=== PATIENT | female | born 2000 | race Caucasian/White ===

== ENCOUNTER 2021-04-17 05:28 | Inpatient (IN) | payer MEDICAID, SELFPAY ==
[2021-04-17 05:30] VITALS: BP 106/73; PULSE 63; RESP 16; TEMP 36.8; O2SAT 94
[2021-04-17 05:32] VITALS: BMI 20.3
[2021-04-17 06:00] VITALS: RESP 15
[2021-04-17] MEDS: acetaminophen 325 mg Tablet 650 MG PO ×2 (06:09→14:27)
--- NOTE | 2021-04-17 11:52 | P.HP_ITS ---
Providers/Chief Complaint Admitting Physician: Jack Barrientos MD Chief Complaint: si HPI NPU History of Present Illness Patricio Cheng is a 20 year old female with an extensive history of psychiatric issues and hospitalizations was transferred from the [place], [place] ED. I spoke with the ED physician who stated that the patient had been medically stabilized and cleared for transport. An affidavit from Jason Maldonado LPC, dated 04/16/2021, states: I saw this patient on this date in the [facility] ED for behavioral assessment. [facility] . She states that she has had suicidal ideation for some time now and that there have been over 20 attempts in the past, by overdose, cutting herself, and trying to strangle herself. She reports that there have been about 8 suicide attempts in the past 3 months. She states that tonight she took 800 mg of trazodone but denies that this was a suicide attempt, and says that she was just trying to sleep for a long time. Patient reports that she is having suicidal ideation with plan and intent and previous attempts. One of her plans was to overdose on trazodone. Patient reports that she is having symptoms of moderately severe depression, paranoid thoughts, and severe anxiety with social anxiety, panic attacks, and obsessive-compulsive features. She reports feelings of helplessness, hopelessness, worthlessness, and guilt. She also has a strong paranoid thoughts (her first comment was to ask this clinician if he was a mean person.) She denies hallucinations and recent manic symptoms. She reports past trauma but did not want to discuss it. Patient reports that her main stressor right now is that she does not have anything and that her sister left her at a park so she had to moved to [place] where she is now staying with a friend (she does not have a place of her own.) Patient reports that she is about to start up with a new psychiatrist/therapist through [facility], but has not been able to see anyone here yet for her mental health needs. Patient reports numerous psychiatric diagnoses and inpatient psychiatric hospital adm issions, most recently on 03/19/2021 in [place]. Patient has self harmed extensively including within the past 3 months, and her most severe suicide attempt required about 70 stitches and she was drunk with alcohol when she did that, but does not drink alcohol anymore. She said her suicidal thoughts started around age 11. She states she uses marijuana, but has not had any since she moved here about 17 days ago. Patient's only support system is 2 of her friends (one of them, who she is living with, had brought her to the hospital). Patient was calm and cooperative for the assessment, with no violent or aggressive behavior. Due to high risk of harm to self, patient does meet criteria for inpatient psychiatric hospital admission. Records from [facility] include: EKG on 04/16/2021 shows sinus bradycardia with sinus arrhythmia and is otherwise a normal EKG. Laboratory on 04/16/2021 shows normal UA, normal CBC, and negative test. CMP was significant for low potassium (3.3), and increased glucose (117). Ethanol, acetaminophen, and salicylate levels were all negative. Urine drug screen was negative for all substances tested. COVID-19 PCR was negative. The patient was admitted to the neuropsychiatric unit for definitive treatment of these issues and largely confirms the above information. She says that she has been in emotional pain, with feelings of helplessness, hopelessness, and worthlessness. She has anxiety and panic attacks, and used to restrict her food intake. She denies nightmares, auditory and visual hallucinations, as well as feelings of paranoia. She says that she has been diagnosed with bipolar disorder, PTSD, insomnia, and has had different diagnoses from different providers. Recently she has been taking trazodone 100 mg at bedtime and has taken Lamictal 25 mg for the past 2 weeks. This is her 30th hospitalization, or so, mostly for suicidal ideation. She is followed up for medication and therapy at [facility], and has her psychiatric appointment on the . She says it will take a couple of months to get into therapy. She denies using alcohol, says she regularly smokes marijuana, but stopped 18 days ago, and does not smoke cigarettes. The patient also says that she was in foster care a number of times growing up, from 6months to 3 years, then from 7 years to 10 years, then from 11 to 15 years, and then again starting at age 16. In between foster care placements she would live with 1 or her other parent. [place]. She says her sister dropped her at a park for 26 hours, and she called her former foster care acoustical installer. The engineering design supervisor picked her up and took her back to [place], [place] and found her temporary housing. She would like to live in some sort of transitional living placement. Psychiatric history: As above. Substance use history: As above. Family history: The patient says that everyone in my family has mental health issues, bipolar disorder, anxiety, etc. She says almost everyone has had substance use issues. She says her mother, sister, and brother have all attempted suicide. Psychosocial history: See above. The patient says she got her online high school graduation certificate. She says she has never worked. Legal history: No legal difficulties. Medical history: Denies any significant medical history, except for eczema, and exercise-induced asthma. Review of Systems General: Reports: 10 or more systems reviewed and unremarkable except in HPI and below Meds NPU Home Medications Medication Instructions Recorded Confirmed Last Taken Type albuterol 90 mcg INHALATION Q6H PRN 04/17/21 04/17/21 Unknown History aripiprazole 7.5 mg PO DAILY 04/17/21 04/17/21 Unknown History clindamycin phosphate 1 applic TOPICAL BID 04/17/21 04/17/21 Unknown History escitalopram oxalate 20 mg PO DAILY 04/17/21 04/17/21 Unknown History fluconazole 150 mg PO DAILY 04/17/21 04/17/21 Unknown History lamotrigine 75 mg PO DAILY 04/17/21 04/17/21 Unknown History minocycline [Minocin] 100 mg PO BID 04/17/21 04/17/21 Unknown History mirtazapine 15 mg PO BEDTIME 04/17/21 04/17/21 Unknown History naltrexone 50 mg PO DAILY 04/17/21 04/17/21 Unknown History polyethylene glycol 3350 17 g PO DAILY 04/17/21 04/17/21 Unknown History trazodone 50 mg PO BEDTIME 04/17/21 04/17/21 Unknown History Allergies Allergy/AdvReac Type Severity Reaction Status Date / Time amoxicillin Allergy ALGY-Rash Verified 04/17/21 05:50 Mental Status Exam MSE Comments: I met with the patient in her room and she would not sit up to talk to me, but rather continue to lay face down for most of the time, and was difficult to understand. There were some question she did not answer at all. No psychomotor agitation or retardation. Speech is at a regular rate and rhythm, quiets, not pressured. Alert, oriented to person, place, time, situation. Attention and concentration were intact. Able to spell the word WORLD correctly forwards and backwards. Memory is intact. Remembers 3/3 words immediately and 3/3 at 3 minutes. He knows the names of the past 3 presidents. Mood is depressed and agitated. Affect is mostly irritable. Thought process is logical and goal-directed. Thought content: Denies auditory and visual hallucinations. No delusions noted. She continues to feel suicidal, and feels like hurting herself. No homicidal ideation. Insight and judgment appear to be limited. Vitals/I&O/Wt Last Vital Signs Temp 98.3 F 04/17/21 05:30 Pulse 63 04/17/21 05:30 Resp 15 04/17/21 06:00 BP 106/73 04/17/21 05:30 Pulse Ox 94 04/17/21 05:30 Weight last 48 hrs Weight 52.163 kg Weight 52.163 kg A&P Assessment and plan (1) PTSD (post-traumatic stress disorder): Status: Acute (2) Bipolar disorder, unspecified: Status: Suspected (3) Disruptive mood dysregulation disorder: Status: Suspected (4) Insomnia: Status: Acute (5) Eating disorder in remission: Status: Acute (6) Cluster B personality disorder in adolescent: Status: Suspected Additional A&P Information Patricio Cheng is a 20 year old female with an extensive history of psychiatric issues and hospitalizations was transferred from the [place], [place] ED. She has a history of childhood trauma and disrupted relationships, spent years in foster care, and has symptoms consistent with cluster B personality organization, as well as disorganized attachment. 1. Continue current medication. 2. Continue every 15 minute checks for safety. 3. Encourage individual, group and milieu therapies. 4. Encourage sober living treatment after discharge at the highest level of care to which he is willing to commit. Involuntary Hold Information 96 Hour Hold: 96 Hour Involuntary Admission: No Attestations NPU Medical Necessity Statement*: Psychiatric hospitalization is medically necessary to prevent access to lethal means, to reevaluate medication, and to coordinate a safe discharge. Patient will be in the hospital for over 2 midnights. Likely length of stay is 3 to 5 days. Coding Level of Care Code Acute Food Adviser for g Fwd Diagnoses PTSD (post-traumatic stress disorder) F43.10 Bipolar disorder, unspecified F31.9 Disruptive mood dysregulation disorder F34.81 Insomnia G47.00 Eating disorder in remission F50.9 Cluster B personality disorder in adolescent F60.9
[2021-04-17 13:26] VITALS: BP 110/70; PULSE 70; RESP 15; TEMP 36.9; O2SAT 98
--- NOTE | 2021-04-17 14:34 | NPU.GN ---
[facility] Group Topic:Coping skills for stress General Mood of Group: Karen did not attend group, It was offered, resting in bed.
[2021-04-17] MEDS: benztropine 1 mg Tablet PO (15:59)
--- NOTE | 2021-04-17 15:59 | PC.NURSE ---
Addendum entered by Jennifer Richey LPN 04/17/21 19:00: error to note---entered on wrong patient Original Note: prn cogentin 1 mg given po per physician request & pt request. no s/s of abnormal movements noted. pt fixing to be discharged
--- NOTE | 2021-04-17 16:01 | PC.NURSE ---
refused scheduled Lamictal & Lexapro
--- NOTE | 2021-04-17 16:50 | PC.NURSE ---
Addendum entered by Jennifer Richey LPN 04/17/21 19:03: prn med effective no further c/o anxiety. pt is resting in bed in room, resp even et unlabored no s/s of distress. cont to be 1:1 with WHEEL ROLLER Original Note: PRN ATIVAN/CODE 10 ATIVAN 2 MG GIVEN IM IN RIGHT DELTOID PER PT BEHAVIOR AND C/O ANXIETY. PT CAME UP TO THE DESK, ASKING FOR A CALMING SHOT PT WAS DEMANDING AN INJECTION. PT OFFERED PRN ORAL MEDS, PT YELLED NO I NEED A SHOT, A CALMING SHOT! PT THEN STARTED HITTING HERSELF IN THE HEAD REPEATEDLY AND THEN THREW HERSELF DOWN ON THE GROUND IN FRONT OF THE NURSES STATION. STAFF ASKED PT IF SHE WOULD GET UP OFF THE FLOOR, PT THEN RAN TO HER ROOM AND WENT INTO THE BATHROOM. GOODYEAR WELTER FOLLOWED PT INTO BATHROOM & PT HAD HER BACK TO RN & REFUSED TO TURN AROUND. SECURITY CALLED & CODE 10 PAGED OVERHEAD. STAFF KEPT ENCOURAGING PT TO COME OUT OF THE BATHROOM, PT REFUSED TO SHOW STAFF WHAT WAS IN HER LEFT HAND WHILE IN THE BATHROOM. PT THEN SAT DOWN IN THE CORNER OF THE BATHROOM & STAFF NOTICED SOME CUTS WITH MINOR BLEEDING TO RIGHT LOWER ARM. STAFF ASKED PT TO COME OUT OF THE BATHROOM SO STAFF COULD FURTHER ASSESS PT ARM & SEE WHAT SHE HAD HIDDEN IN HER HANDS. PT HAD THROWN A PIECE OF BROKEN PLASTIC CUP LID IN THE TOILET. THIS ITEM RETRIEVED BY STAFF & DISPOSED OF SAFELY. PT SAT ON HER BED FOR INJECTION OF ATIVAN. PT VERY ADAMANT THAT SHE GETS THE MEDICATIONS SHE WANTS, PT REFUSED TO TAKE ORAL ZYPREXA, PT KEPT STATING TO STAFF THIS ISN'T MY FIRST RODEO. STAFF EXPLAINED TO PT THAT OUR PRIORITY WAS TO KEEP HER SAFE, STAFF ASKED WHAT ELSE SHE USED TO CUT HER ARM WITH, PT SPIT OUT A LONG PIECE OF PLASTIC ON THE FLOOR. TOLD STAFF IT WAS FROM A TOOTHBRUSH THIS ITEM ALSO REMOVED FROM ROOM & DISPOSED OF SAFELY BY STAFF. PT THEN TOLD STAFF I HAVE MORE & WENT TO HER CLOSET AND PULLED OUT TWO OTHER PIECES OF BROKEN CUP LID FROM HER DRAWER. STAFF AGAIN REMOVED ITEMS FROM ROOM & DISPOSED OF SAFELY. PT PUT ON 1:1 SITTER WITH WHEEL ROLLER AT THIS TIME FOR HER SAFETY. DR. ESTEBAN NOTIFIED OF PT'S BEHAVIOR & ORDER GIVEN VIA TELEPHONE FOR PT TO HAVE 1:1 SITTER & ANTIBIOTIC OINTMENT FOR HER CUTS TO HER ARM. STAFF WILL CONT TO MONITOR FOR DESIRED MED EFFECTIVENESS.
[2021-04-17] MEDS: LORazepam 2 mg/mL INJ 1 mL IM (16:59)
[2021-04-17] MEDS: neomycin-poly-bacitracin oint 28 gm 1 APPLIC TOPICAL (18:20)
[2021-04-17 21:05] VITALS: RESP 17
[2021-04-17] MEDS: lamoTRIgine 25 mg Tablet 50 MG PO (21:54)
[2021-04-17] MEDS: trazodone 50 mg Tablet PO (21:54)
[2021-04-18 05:55] VITALS: BP 90/59; PULSE 88; RESP 16; TEMP 37.4; O2SAT 97
--- NOTE | 2021-04-18 07:47 | P.PN_ITS ---
Subjective NPU Subjective: Interval history: The patient has been labile, agitated, and dysregulated, sometimes yelling at the top of her lungs, on another occasion, putting herself inside a trash can and refusing to come out. She is not very able to cooperate with the exam today. She has either tried or actually scratched on her arms today. She was placed on a one-to-one observation, and also moved to room 170, to decrease her stimulation. Mental Status Exam MSE Comments: I met with the patient in the hallway, and she was agitated and cooperative, making poor eye contact. Speech was pressured. Alert, oriented to person, and situation. Attention and concentration were internally focused on her own distress. Memory is not tested.. Mood is silly, agitated and anxious. Affect is agitated. Thought process is concrete and illogical. Thought content: Denies auditory and visual hallucinations. No delusions noted. She is not able to answer about suicidal or homicidal ideation, but she does have intentions to harm herself. Insight and judgment are impaired. Vitals/I&O/Wt Last Vital Signs Temp 99.3 F 04/18/21 05:55 Pulse 88 04/18/21 05:55 Resp 16 04/18/21 05:55 BP 90/59 04/18/21 05:55 Pulse Ox 97 04/18/21 05:55 Weight last 48 hrs Weight 52.163 kg Weight 52.163 kg A&P Assessment and plan (1) Cluster B personality disorder in adolescent: Status: Suspected (2) Eating disorder in remission: Status: Resolved (3) Insomnia: Status: Acute (4) Disruptive mood dysregulation disorder: Status: Suspected (5) Bipolar disorder, unspecified: Status: Suspected (6) PTSD (post-traumatic stress disorder): Status: Acute Additional A&P Information Patricio Cheng is a 20 year old female with an extensive history of psychiatric issues and hospitalizations was transferred from the [place], [place] ED. She has a history of childhood trauma and disrupted relationships, spent years in foster care, and has symptoms consistent with cluster B personality organization, as well as disorganized attachment. 1. Adjust medication. * Add guanfacine 1 mg daily for impulsivity. Patient understands risks, benefits, side effects and consents to a trial. * Discontinue Abilify, as the patient says it doesn't work for her. * She also says there are other medicines listed as home meds which have not been helpful, and will not be ordered: albuterol, escitalopram, fluconazole, minocycline, mirtazapine, naltrexone. * We will add Trazodone 100 mg nightly, as she says that is helpful for insomnia. * We will add polyethylene glycol 17 mg a day as needed for constipation, as the patient says it is helpful. * She says clindimycin topical gel is helpful for acne, but we don't have it on formulary, and she did not bring it with her. There are no other topical acne medicines on our formulary. 2. Continue every 15 minute checks for safety. 3. Encourage individual, group and milieu therapies. 4. Encourage sober living treatment after discharge at the highest level of care to which she is willing to commit. Involuntary Hold Information 96 Hour Hold: 96 Hour Involuntary Admission: No Attestations NPU Medical Necessity Statement*: Psychiatric hospitalization is medically necessary to prevent access to lethal means, to reevaluate medication, and to coordinate a safe discharge. Likely length of stay is 2 to 4 days. Coding Level of Care Code Acute Top Closer for [facility] Fwd Diagnoses Cluster B personality disorder in adolescent F60.9 Eating disorder in remission F50.9 Insomnia G47.00 Disruptive mood dysregulation disorder F34.81 Bipolar disorder, unspecified F31.9 PTSD (post-traumatic stress disorder) F43.10
--- NOTE | 2021-04-18 08:47 | PC.NURSE ---
refused scheduled Burty, pt yelled at staff no it doesn't work
[2021-04-18] MEDS: LORazepam 2 mg/mL INJ 1 mL IM (09:44)
--- NOTE | 2021-04-18 09:44 | PC.NURSE ---
behavior/PRN ATIVAN ATIVAN 2 MG GIVEN IM IN LEFT DELTOID FOR PT C/O AGITATION/ANXIETY. PT RAN INTO ROOM, TRIED TO BITE OPEN HER CUTS TO HER ARM. SECURITY & GENERAL OPERATOR TO ROOM WHILE THIS NURSE WAS PULLING PRN MEDICATION. WHEN THIS NURSE ENTERED ROOM PT WAS ASKED TO SIT ON THE BED FOR MED ADMINISTRATION. PT WAS COMPLIANT WITH MED ADMINISTRATION. TOLD STAFF SHE JUST WANTED TO , KILL HERSELF, OR GET STITCHES TO HER ARM. STAFF EXPLAINED TO PT THE NEED TO KEEP HER 1:1 FOR HER SAFETY, PT POINTED TO THE 1:1 SITTER SAYING SHE IS MEAN! STAFF WILL CONT TO MONITOR CLOSELY
[2021-04-18] MEDS: blistex lip oint 7 gm Tube 1 APPLIC TOPICAL (10:29)
[2021-04-18] MEDS: guanfacine 1 mg Tablet PO (10:54)
--- NOTE | 2021-04-18 12:34 | NPU.GN ---
[facility] Group Topic:Anger General Mood of Group: Tiffany did contribute to group some. She at first wanted to sleep and did not want to go to group, while in the day room eating she asked to join the group conversation. She was dressed adequately and had good hygiene. Her hair was a mess but she was appropriate for group. She was able to participate in the group while playing the card game Red Flags.. This game was used to open conversation with the group about triggers. She did a great job participating up till close to the end of group, she was being inpatient when another group member was opening up about a past trauma, instead of listening she wanted to read her card, she told the group that they were rude for not letting her read her card. This patient did not seem to have patience nor the understanding that she was the one who was being rude. This chief writer did not feel she understood the concept of group. She seemed to have lower intelligence for her age. She then went on into her room and become very agitated. She was not asked to return back to group as this was just further add to her frustration.
[2021-04-18 14:00] VITALS: RESP 18; TEMP 37.3
[2021-04-18] MEDS: ziprasidone 20 mg/mL SDV 10 MG IM (14:22)
--- NOTE | 2021-04-18 14:23 | PC.NURSE ---
PRN GEODON 10 MG GIVEN IM IN LEFT BUTTOCK PER PT C/O SEVERE AGITATION. PT BEING VERY DISRUPTIVE ON UNIT, YELLING & SCREAMING AT THE TOP OF HER LUNGS. PT GOT INTO THE DIRTY LINEN BARREL IN THE HALLWAY & REFUSED TO GET OUT, SECURITY CALLED TO UNIT. PT WENT TO HER ROOM FOR INJECTION BUT YELLING AT STAFF ABOUT HOW BORING IT IS HERE & HOW WE SHOULD GET A GUN AND SHOT HER STAFF HAS TO REDIRECT OFTEN. PT CONT TO BE 1:1 WITH STAFF. WILL CONT TO MONITOR FOR DESIRED MED EFFECTIVENESS.
[2021-04-18] MEDS: lamoTRIgine 25 mg Tablet 50 MG PO (20:16)
[2021-04-18] MEDS: trazodone 100 mg Tablet PO (20:16)
--- NOTE | 2021-04-18 20:16 | PC.NURSE ---
5mg Zyprexa given for agitation.
[2021-04-18 21:24] VITALS: BP 99/65; PULSE 98; RESP 16; TEMP 36.4; O2SAT 98
[2021-04-19] MEDS: trazodone 50 mg Tablet PO ×2 (00:27→23:31)
--- NOTE | 2021-04-19 00:27 | PC.NURSE ---
patiwnt requesting additional trazodone for sleep. 50mg trazodone PO given.
[2021-04-19 06:00] VITALS: BP 95/65; PULSE 89; RESP 16; TEMP 36.7; O2SAT 99
[2021-04-19] MEDS: guanfacine 1 mg Tablet PO (09:03)
[2021-04-19] MEDS: acetaminophen 325 mg Tablet 650 MG PO ×2 (10:22→21:22)
--- NOTE | 2021-04-19 10:22 | PC.NURSE ---
Patient requesting Tylenol for her back pain.
[2021-04-19 14:00] VITALS: RESP 16
[2021-04-19] MEDS: ziprasidone 20 mg/mL SDV 10 MG IM ×2 (14:11→14:24)
--- NOTE | 2021-04-19 14:29 | P.PN_ITS ---
Subjective NPU Subjective: Interval history: The patient says she is fine, and is not willing to characterize her mood or experience further at this point. She does say she still feels like hurting herself and will probably do so. No auditory or visual hallucinations. I observed the patient throughout the day, and she did various out of the ordinary things, such as laying in the middle of the hallway floor. She seems to enjoy the attention of the one-to-one sitter she has. Today overall has been calmer than yesterday, even though there was another patient who was quite agitated and yelling. Mental Status Exam MSE Comments: I again met with the patient in the hallway, that is where she spends a lot of time. She was calmer than yesterday, but not much more cooperative. Eye contact is still poor. Speech was at a more regular rate and rhythm today, more normal volume.. Alert, oriented to person, and situation. Attention and concentration were more intact.. Memory is not tested. Mood is still silly, but not as intense. Affect can still be agitated. Thought process is concrete and illogical. Thought content: Denies auditory and visual hallucinations. No delusions noted. She thinks about killing herself but not others. Still has ideas of cutting herself and needs to be watched closely. Insight and judgment are impaired. Vitals/I&O/Wt Last Vital Signs Temp 98.1 F 04/19/21 06:00 Pulse 89 04/19/21 06:00 Resp 16 04/19/21 14:00 BP 95/65 04/19/21 06:00 Pulse Ox 99 04/19/21 06:00 A&P Assessment and plan (1) Cluster B personality disorder in adolescent: Status: Suspected (2) Eating disorder in remission: Status: Resolved (3) Insomnia: Status: Acute (4) Disruptive mood dysregulation disorder: Status: Suspected (5) Bipolar disorder, unspecified: Status: Suspected (6) PTSD (post-traumatic stress disorder): Status: Acute Additional A&P Information Patricio Cheng is a 20 year old female with an extensive history of psychiatric issues and hospitalizations was transferred from the [place], [place] ED. She has a history of childhood trauma and disrupted relationships, spent years in foster care, and has symptoms consistent with cluster B personality organization, as well as disorganized attachment. 1. Adjust medication. * Add guanfacine 1 mg daily for impulsivity. Patient understands risks, benefits, side effects and consents to a trial. * Discontinue Abilify, as the patient says it doesn't work for her. * It would be helpful to start another mood stabilizer/atypical antipsychotic, however the patient has refused those medications so far. * She also says there are other medicines listed as home meds which have not been helpful, and will not be ordered: albuterol, escitalopram, fluconazole, minocycline, mirtazapine, naltrexone. * We will add Trazodone 100 mg nightly, as she says that is helpful for insomnia. * We will add polyethylene glycol 17 mg a day as needed for constipation, as the patient says it is helpful. * She says clindimycin topical gel is helpful for acne, but we don't have it on formulary, and she did not bring it with her. There are no other topical acne medicines on our formulary. 2. Continue every 15 minute checks for safety. 3. Encourage individual, group and milieu therapies. 4. Encourage sober living treatment after discharge at the highest level of car e to which she is willing to commit. Involuntary Hold Information 96 Hour Hold: 96 Hour Involuntary Admission: No Attestations NPU Medical Necessity Statement*: Psychiatric hospitalization is medically necessary to prevent access to lethal means, to reevaluate medication, and to coordinate a safe discharge. Likely length of stay is 2 to 4 days. Coding Level of Care Code Acute Environmental Engineering Manager for [facility] Alvaro Diagnoses Cluster B personality disorder in adolescent F60.9 Eating disorder in remission F50.9 Insomnia G47.00 Disruptive mood dysregulation disorder F34.81 Bipolar disorder, unspecified F31.9 PTSD (post-traumatic stress disorder) F43.10
[2021-04-19 20:51] VITALS: BP 99/67; PULSE 96; RESP 16; TEMP 36.4; O2SAT 98
[2021-04-19] MEDS: polyethylene glycol 3350 Pkt 17 gm PO (21:17)
[2021-04-19] MEDS: lamoTRIgine 25 mg Tablet 50 MG PO (21:17)
[2021-04-19] MEDS: trazodone 100 mg Tablet PO (21:17)
[2021-04-19] MEDS: blistex lip oint 7 gm Tube 1 APPLIC TOPICAL (21:18)
[2021-04-19] MEDS: benzocaine 20% 7 gm 1 APPLIC MUCOUS MEM (21:23)
--- NOTE | 2021-04-19 23:31 | PC.NURSE ---
Trazodone 50mg PO given per patient request for sleep.
[2021-04-20 06:00] VITALS: BP 100/66; PULSE 78; RESP 17; TEMP 36.8; O2SAT 99
[2021-04-20] MEDS: acetaminophen 325 mg Tablet 650 MG PO ×3 (06:26→21:25)
[2021-04-20] MEDS: guanfacine 1 mg Tablet PO (09:08)
[2021-04-20 14:00] VITALS: BP 105/70; PULSE 88; RESP 16; TEMP 37.1; O2SAT 99
--- NOTE | 2021-04-20 14:38 | PM.NPN ---
Subjective NPU Subjective: Interval history: Finesse presents today reporting that she feels her ultimate solution is to get back on lithium. We had a fairly lengthy discussion about her history with lithium that according to her has significant success however it also bears risk as she has at times she has overtaking it. She reports that she was taken off of it not because of an overdose attempt but because her levels got too high. Though she was suggestive that there may have been an intentional overuse of lithium at some point. We discussed the lack of oversight in her medication administration being a concern about that medication. That being said she reports that she is never been on a higher dose of Lamictal and she is been on now and that people have wanted to get her to a higher dose of Lamictal in the past but but slow titration regimen needed in a acute setting has been limiting. She does understand the risk for Jung-Naun syndrome. We discussed the risk benefits and alternatives of increasing the Lamictal now and exploring a plan for another mood stabilizer later. We reviewed possible agents and thus far Vraylar was the only one she had not identified taking at some point. She continues to endorse feeling out of control and not in charge of her behaviors. Mental Status Exam MSE Comments: This is a slender white female in hospital scrubs with limited grooming and eye contact. No abnormal movements. Significant essentially parallel scratches/scars of varying ages on her right forearm. Cooperative with exam in mild distress. Speech was normal rate and volume. Mood described as irritable, affect congruent. Thought process organized. Thought content: Patient endorsed suicidal ideation but denied homicidal ideation, there are no delusions reported or noted, she denied any auditory or visual hallucinations. Attention and concentration appeared intact and memory was mostly reliable but none were formally tested. She is alert and oriented x3. Insight and judgment are limited and impulse control is impaired. 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 She has a history of childhood trauma and disrupted relationships, spent years in foster care, and has symptoms consistent with cluster B personality organization, as well as disorganized attachment. 1. Adjust medication. Increase Lamictal to 100 mg daily in divided dose. We will make sure she has appropriate resources to initiate Vraylar tomorrow. 2. Continue one-to-one observation until we are clear she can maintain himself safely on the unit. Also we should be open to discharging when a safe follow-up plan is identified as the evidence is clear that long-term inpatient psychiatric hospitalization for cluster B/personality disordered patients is ineffective. 3. Encourage individual, group and milieu therapies. 4. Encourage sober living treatment after discharge at the highest level of care to which she is willing to commit. Involuntary Hold Information 96 Hour Hold: 96 Hour Involuntary Admission: No Attestations NPU Medical Necessity Statement*: Inpatient hospitalization is medically necessary and the clinically appropriate intervention at this time. We will monitor medications and make changes as indicated. Likely length of stay 3 to 5 days. 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
[2021-04-20 21:00] VITALS: BP 98/70; PULSE 75; RESP 21; TEMP 37.2; O2SAT 98
[2021-04-20] MEDS: trazodone 100 mg Tablet PO (21:24)
[2021-04-20] MEDS: trazodone 50 mg Tablet PO (21:24)
--- NOTE | 2021-04-20 22:29 | PC.NURSE ---
Lamotrogine 50 mg wasted ; Patient refused after opening.
[2021-04-21] MEDS: hyDROXYzine 25 mg Capsule 50 MG PO (00:39)
[2021-04-21 06:00] VITALS: BP 93/56; PULSE 58; RESP 16; TEMP 36.7; O2SAT 97
--- NOTE | 2021-04-21 12:30 | NPU.GN ---
[facility] Group Topic:Depression General Mood of Group: Finesse was asleep. I did not want to disturb her as she is easily stimulated by group. She was very disruptive to group the last two groups.
[2021-04-21] MEDS: acetaminophen 325 mg Tablet 650 MG PO (13:17)
[2021-04-21 14:00] VITALS: BP 102/72; PULSE 71; RESP 17; TEMP 36.3; O2SAT 99
[2021-04-21] MEDS: lamoTRIgine 25 mg Tablet 50 MG PO (17:39)
--- NOTE | 2021-04-21 18:12 | PM.NPN ---
Subjective NPU Subjective: Interval history: Patient presents today with a rough beginning of the day with a med refusal and some agitated interactions with staff. She was able to work with the social work team to find a viable discharge plan and her whole presentation shifted. We discussed removing the one-to-one observation and allowing her to prove over the next 18 to 24 hours that she was able to manage her behaviors. We discussed the thought that an increase in the Lamictal is warranted and will be effective and encouraged her to be adherent to the medication. We agreed to discuss discharge in the morning to her stepparents if she was able to manage herself off the one-to-one. Mental Status Exam MSE Comments: This is a slender white female in hospital scrubs with improving grooming and eye contact. No abnormal movements. Significant essentially parallel scratches/scars of varying ages on her right forearm. Cooperative with exam in no acute distress. Speech was normal rate and volume. Mood described as better, affect congruent. Thought process organized. Thought content: Patient denied suicidal ideation or homicidal ideation, there are no delusions reported or noted, she denied any auditory or visual hallucinations. Attention and concentration appeared intact and memory was mostly reliable but none were formally tested. She is alert and oriented x3. Insight and judgment are limited, but improving and impulse control is limited. 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 She has a history of childhood trauma and disrupted relationships, spent years in foster care, and has symptoms consistent with cluster B personality organization, as well as disorganized attachment. 1. Continue current medication 2. Start every 15 minute checks for safety. 3. Encourage individual, group and milieu therapies. 4. Encourage sober living treatment after discharge at the highest level of care to which she is willing to commit. 5. There is a plan for discharge in the morning. Involuntary Hold Information 96 Hour Hold: 96 Hour Involuntary Admission: No Attestations NPU Medical Necessity Statement*: Inpatient hospitalization is medically necessary and the clinically appropriate intervention at this time. We will monitor medications and make changes as indicated. Likely length of stay 1-3 days. Coding Level of Care Code Acute Secretary Administrative Assistant for Bhavik James
[2021-04-21 20:14] VITALS: BP 103/72; PULSE 88; RESP 18; TEMP 36.5; O2SAT 99
[2021-04-21] MEDS: trazodone 50 mg Tablet PO (20:24)
[2021-04-21] MEDS: trazodone 100 mg Tablet PO (20:30)
[2021-04-22 06:00] VITALS: BP 100/76; PULSE 87; RESP 18; TEMP 36.7; O2SAT 100
[2021-04-22] MEDS: guanfacine 1 mg Tablet PO (07:55)
[2021-04-22] MEDS: lamoTRIgine 25 mg Tablet 50 MG PO (07:55)
--- NOTE | 2021-04-22 09:54 | PM.NDC ---
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 I spoke with the ED physician who stated that the patient had been medically stabilized and cleared for transport. An affidavit from Jason Maldonado LPC, dated 04/16/2021, states: I saw this patient on this date in the [facility] ED for behavioral assessment. Patient reports that she came to the hospital [facility] because she wants to . She states that she has had suicidal ideation for some time now and that there have been over 20 attempts in the past, by overdose, cutting herself, and trying to strangle herself. She reports that there have been about 8 suicide attempts in the past 3 months. She states that tonight she took 800 mg of trazodone but denies that this was a suicide attempt, and says that she was just trying to sleep for a long time. Patient reports that she is having suicidal ideation with plan and intent and previous attempts. One of her plans was to overdose on trazodone. Patient reports that she is having symptoms of moderately severe depression, paranoid thoughts, and severe anxiety with social anxiety, panic attacks, and obsessive-compulsive features. She reports feelings of helplessness, hopelessness, worthlessness, and guilt. She also has a strong paranoid thoughts (her first comment was to ask this clinician if he was a mean person.) She denies hallucinations and recent manic symptoms. She reports past trauma but did not want to discuss it. Patient reports that her main stressor right now is that she does not have anything and that her sister left her at a park so she had to moved to [place] where she is now staying with a friend (she does not have a place of her own.) Patient reports that she is about to start up with a new psychiatrist/therapist through [facility], but has not been able to see anyone here yet for her mental health needs. Patient reports numerous psychiatric diagnoses and inpatient psychiatric hospital admissions, most recently on 03/19/2021 in [place]. Patient has self harmed extensively including within the past 3 months, and her most severe suicide attempt required about 70 stitches and she was drunk with alcohol when she did that, but does not drink alcohol anymore. She said her suicidal thoughts started around age 11. She states she uses marijuana, but has not had any since she moved here about 17 days ago. Patient's only support system is 2 of her friends (one of them, who she is living with, had brought her to the hospital). Patient was calm and cooperative for the assessment, with no violent or aggressive behavior. Due to high risk of harm to self, patient does meet criteria for inpatient psychiatric hospital admission. Records from [facility] include: EKG on 04/16/2021 shows sinus bradycardia with sinus arrhythmia and is otherwise a normal EKG. Laboratory on 04/16/2021 shows normal UA, normal CBC, and negative test. CMP was significant for low potassium (3.3), and increased glucose (117). Ethanol, acetaminophen, and salicylate levels were all negative. Urine drug screen was negative for all substances tested. COVID-19 PCR was negative. The patient was admitted to the neuropsychiatric unit for definitive treatment of these issues and largely confirms the above information. She says that she has been in emotional pain, with feelings of helplessness, hopelessness, and worthlessness. She has anxiety and panic attacks, and used to restrict her food intake. She denies nightmares, auditory and visual hallucinations, as well as feelings of paranoia. She says that she has been diagnosed with bipolar disorder, PTSD, insomnia, and has had different diagnoses from different providers. Recently she has been taking trazodone 100 mg at bedtime and has taken Lamictal 25 mg for the past 2 weeks. This is her 30th hospitalization, or so, mostly for suicidal ideation. She is followed up for medication and therapy at [facility], and has her psychiatric appointment on the . She says it will take a couple of months to get into therapy. She denies using alcohol, says she regularly smokes marijuana, but stopped 18 days ago, and does not smoke cigarettes. The patient also says that she was in foster care a number of times growing up, from 6months to 3 years, then from 8 years to 10 years, then from 11 to 15 years, and then again starting at age 16. In between foster care placements she would live with 1 or her other parent. [place]. She says her sister dropped her at a park for 26 hours, and she called her former foster care knapsack sprayer. The ticket sales supervisor picked her up and took her back to [place], [place] and found her temporary housing. She would like to live in some sort of transitional living placement. Psychiatric history: As above. Substance use history: As above. Family history: The patient says that everyone in my family has mental health issues, bipolar disorder, anxiety, etc. She says almost everyone has had substance use issues. She says her mother, sister, and brother have all attempted suicide. Psychosocial history: See above. The patient says she got her online high school graduation certificate. She says she has never worked. Legal history: No legal difficulties. Medical history: Denies any significant medical history, except for eczema, and exercise-induced asthma. Hospital Course Hospital Course She presented to the neuropsychiatric unit for definitive treatment of the above issues. On the unit she slowly acclimated to the individual, group and milieu therapy provided. She was resistant to the medication interventions, however she was started on guanfacine and did accept an increase in her Lamictal and showed modest improvement. She was able to contract for safety prior to discharge. During the hospitalization, patient had routine laboratory studies which were within normal limits except for few outliers. Additionally there was a general medical evaluation which was also within normal limits and revealed no new acute processes. Discharge Summary: At the time of discharge, she denied psychosis or lethality. Mood and anxiety were well managed. Patient endorsed a plan to follow-up with the aftercare recommendations of the treatment team. Patient was evaluated and deemed to be absent credible lethality, and had achieved the maximum benefit from an inpatient hospitalization, so was discharged. Involuntary Hold Information 96 Hour Hold: 96 Hour Involuntary Admission: No Mental Status Exam MSE Comments: This is a slender white female in hospital scrubs with improving grooming and eye contact. No abnormal movements. Significant essentially parallel scratches/scars of varying ages on her right forearm. Cooperative with exam in no acute distress. Speech was normal rate and volume. Mood described as better, affect congruent. Thought process organized. Thought content: Patient denied suicidal ideation or homicidal ideation, there are no delusions reported or noted, she denied any auditory or visual hallucinations. Attention and concentration appeared intact and memory was mostly reliable but none were formally tested. She is alert and oriented x3. Insight and judgment are limited, but improving and impulse control is limited. Discharge Data Vitals: Last Vital Signs Temp 98.1 F 04/22/21 06:00 Pulse 87 04/22/21 06:00 Resp 18 04/22/21 06:00 BP 100/76 04/22/21 06:00 Pulse Ox 100 04/22/21 06:00 Discharge Plan Discharge Patient Disposition: Home Condition: Stable Prescriptions: New lamotrigine 25 mg Tablet 50 mg PO BID 30 Days Qty: 120 RF: 1 trazodone 100 mg Tablet 100 mg PO BEDTIME 30 Days Qty: 30 RF: 1 guanfacine 1 mg Tablet 1 mg PO DAILY 30 Days Qty: 30 RF: 0 hydroxyzine pamoate 25 mg Capsule 50 mg PO Q6H PRN (Reason: Anxiety) 30 Days Qty: 120 RF: 1 Continued polyethylene glycol 3350 17 gram Powder In Packet 17 g PO DAILY RF: 0 minocycline 100 mg Capsule 100 mg PO BID RF: 0 naltrexone 50 mg Tablet 50 mg PO DAILY RF: 0 albuterol 90 mcg/actuation Aerosol 90 mcg INHALATION Q6H PRN (Reason: Shortness Of Breath) RF: 0 Discontinued trazodone 50 mg Tablet 50 mg PO BEDTIME RF: 0 fluconazole 150 mg Tablet 150 mg PO DAILY RF: 0 lamotrigine 25 mg Tablet 75 mg PO DAILY RF: 0 clindamycin phosphate 1 % Gel 1 applic TOPICAL BID RF: 0 mirtazapine 15 mg Tablet 15 mg PO BEDTIME RF: 0 escitalopram oxalate 20 mg Tablet 20 mg PO DAILY RF: 0 aripiprazole 5 mg Tablet 7.5 mg PO DAILY RF: 0 Discharge Orders: Discharge Order (Routine); Ordered 04/22/21 Ordered By: Franc Albert Referrals: [facility] [Other] [facility] [Other] (Visit anytime Saturday-Saturday from 8:00am to 4:00pm to complete and initial assesment. ) Discharge Diet: Regular Discharge Activity: Resume usual activity Patient Instructions: Opioid Safety Discharge Attestations NPU Time Spent in Discharge Care*: less than 30 min Specific Discharge Activities: Specific discharge activities: educating patient, discussing with disability case manager/social workers/dc planners, documenting/other paperwork and evaluating patient/reviewing data Coding Level of Care Code [facility] DC note Diagnoses Cluster B personality disorder in adolescent F60.9 Eating disorder in remission F50.9 Insomnia G47.00 Disruptive mood dysregulation disorder F34.81 Bipolar disorder, unspecified F31.9 PTSD (post-traumatic stress disorder) F43.10
[2021-04-22 09:56] VITALS: BP 100/76; PULSE 87; RESP 18; TEMP 36.7; O2SAT 100
== END 2021-04-22 11:57 | disposition home or self-care (01) | DRG 883 ==
PROVIDERS: Admitting Provider Psychiatry & Neurology Child & Adolescent Psychiatry; Visit Provider Psychiatry & Neurology Psychiatry
DX: F60.89 Other specific personality disorders (principal); R45.851 Suicidal ideations; F31.9 Bipolar disorder, unspecified; F34.81 Disruptive mood dysregulation disorder; F43.10 Post-traumatic stress disorder, unspecified; F41.9 Anxiety disorder, unspecified; G47.00 Insomnia, unspecified; F50.89 Other specified eating disorder; F12.10 Cannabis abuse, uncomplicated; Z20.822 Contact with and (suspected) exposure to COVID-19; Z88.0 Allergy status to penicillin; Z81.8 Family history of other mental and behavioral disorders; Z81.1 Family history of alcohol abuse and dependence
CPT/HCPCS: 90935; 96372; J2060; J3486